=== PATIENT | female | born 1965 | race Caucasian/White ===

== ENCOUNTER 2017-03-24 16:51 | Emergency (ER) | payer MEDICARE, BC ==
--- NOTE | 2017-03-24 18:04 | RAD ---
HISTORY: Right shoulder injury and pain, trauma COMPARISONS: None VIEWS: 4, Frontal internal rotation, external rotation, outlet, and axillary views of the right shoulder FINDINGS: BONE DENSITY: Normal. BONES: There is no displaced fracture. JOINTS: There is no arthropathy. ALIGNMENT: There is no dislocation. SOFT TISSUES: Unremarkable. OTHER FINDINGS: None. IMPRESSION: NO ACUTE OSSEOUS INJURY. IF SYMPTOMS PERSIST, RECOMMEND REPEAT IMAGING.
--- NOTE | 2017-03-24 18:29 | ED ---
Upper Extremity Pain - HPI Summary HPI Summary: 51F presents with right arm pain s/p falling last night. She states she felt lightheaded all day from being dehydrated so was a little overbalance when she was walking through her house at night. She states the lightheadedness has resolved. She states she landed on her right wrist and felt pain in her shoulder on the sofa and continues to fall and landed again on her shoulder and right elbow. She denies any head injury or LOC. She denies any headache, nausea or vomiting. She is not on any blood thinners. She is being treated for leukemia and has arthritis in her shoulder and a weak rotator cuff. She has limited ROM of her shoulder. She can not lift her shoulder overhead. She is right handed. She has taken ibuprofen for her pain. Her pain starts on the right side of her neck and travels down her entire arm but is greatest in her shoulder. - History of Current Complaint Chief Complaint: EDExtremityUpper Stated Complaint: RT SHOULDER PAIN/LMTED MOVEMENT Time Seen by Provider: 03/24/17 17:34 - Allergies/Home Medications Allergies/Adverse Reactions: Allergies Allergy/AdvReac Type Severity Reaction Status Date / Time Acetaminophen [From Tylenol] Allergy See Comment Verified 07/07/16 10:32 Codeine Allergy Rash Verified 07/07/16 10:32 PMH/Surg Hx/FS Hx/Imm Hx Endocrine/Hematology History: Denies: Hx Diabetes Cardiovascular History: Denies: Hx Hypertension, Hx Pacemaker/ICD History: Denies: Hx Renal Disease Musculoskeletal History: Denies: Hx Rheumatoid Arthritis, Hx Osteoporosis Sensory History: Denies: Hx Hearing Aid Psychiatric History: Denies: Hx Panic Disorder - Cancer History Cancer Type, 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 RIGHT TONSIL REMOVED Infectious Disease History: No Infectious Disease History: Denies: Traveled Outside the [place] in Last 30 Days - Family History Known Family History: Positive: Cardiac Disease - Social History Alcohol Use: None Substance Use Type: Reports: None Smoking Status (MU): Former Smoker Review of Systems Negative: Fever Negative: Chest Pain Negative: Shortness Of Breath Positive: Myalgia - right shoulder and arm pain All Other Systems Reviewed And Are Negative: Yes Physical Exam Triage Information Reviewed: Yes Vital Signs On Initial Exam: Initial Vitals Temp Pulse Resp BP Pulse Ox 98.7 F 91 18 136/84 98 03/24/17 17:01 03/24/17 17:01 03/24/17 17:01 03/24/17 17:01 03/24/17 17:01 Vital Signs Reviewed: Yes Appearance: Positive: Well-Appearing Skin: Positive: Warm, Dry Head/Face: Positive: Normal Head/Face Inspection Eyes: Positive: Normal, Conjunctiva Clear ENT: Positive: Normal ENT inspection, Pharynx normal, TMs normal Respiratory/Lung Sounds: Positive: Clear to Auscultation, Breath Sounds Present Cardiovascular: Positive: Normal, RRR Musculoskeletal: Positive: Limited @ - right shoulder, Other - neg drop arm, neg yearson, unable to move arm behind back for lift off test, good pulses, capillary refill<2 secs, tender across trapezius muscle into right shoulder, tender in right wrist, abrasion to right elbow noted Neurological: Positive: Sensory/Motor Intact, Alert, Oriented to Person Place, Time, CN Intact II-III Diagnostics - Vital Signs Vital Signs Temp Pulse Resp BP Pulse Ox 03/24/17 17:08 98.7 F 91 18 136/84 98 03/24/17 17:01 98.7 F 91 18 136/84 98 - Laboratory Lab Statement: Any lab studies that have been ordered have been reviewed, and results considered in the medical decision making process. - Radiology shoulder Xray Interpretation: No Acute Changes Radiology Interpretation Completed By: Radiologist elbow, wrist Xray Interpretation: No Acute Changes Radiology Interpretation Completed By: Radiologist Course/Dx - Course Course Of Treatment: 51F presents with right arm pain s/p falling last night. She states she felt lightheaded all day from being dehydrated so was a little overbalance when she was walking through her house at night. She states the lightheadedness has resolved. She states she landed on her right wrist and felt pain in her shoulder on the sofa and continues to fall and landed again on her shoulder and right elbow. She denies any head injury or LOC. She can not lift her shoulder overhead. normal neuro exam. unable to lift arm above 90 degree or behind back. neg drop arm. neurovascular intact. xray normal. explained that may have rotator cuff injury so should follow up with ortho. patient understands and agrees with plan - Diagnoses Differential Diagnosis/HQI/PQRI: Positive: Fracture (Closed), Strain, Sprain Provider Diagnoses: Right shoulder pain, Right arm pain Discharge - Discharge Plan Condition: Good Disposition: HOME Patient Education Materials: Shoulder Pain (ED) Referrals: Dieter Najera MD [Primary Care Provider] - Chacho Rios MD [Medical Doctor] - Additional Instructions: Take ibuprofen every 6 hours as needed for pain Ice/heat area Perform range of motion activities for shoulder Follow up with ortho Return to ED if develop any new or worsening symptoms
--- NOTE | 2017-03-24 18:58 | RAD ---
HISTORY: Right wrist pain, trauma COMPARISONS: None VIEWS: 3, Frontal, lateral, and oblique views of the right wrist FINDINGS: BONE DENSITY: Normal. BONES: There is no displaced fracture. JOINTS: There is no arthropathy. ALIGNMENT: There is no dislocation. SOFT TISSUES: Unremarkable. OTHER FINDINGS: None. IMPRESSION: NO ACUTE OSSEOUS INJURY. IF SYMPTOMS PERSIST, RECOMMEND REPEAT IMAGING.
--- NOTE | 2017-03-24 18:58 | RAD ---
HISTORY: Right elbow pain, trauma COMPARISONS: None VIEWS: 4, Frontal, lateral, and oblique views of the right elbow FINDINGS: BONE DENSITY: Normal. BONES: There is no displaced fracture. JOINTS: There is no arthropathy. There is no posterior supracondylar fat pad to suggest a joint effusion. ALIGNMENT: There is no dislocation. SOFT TISSUES: Unremarkable. OTHER FINDINGS: None. IMPRESSION: NO ACUTE OSSEOUS INJURY. IF SYMPTOMS PERSIST, RECOMMEND REPEAT IMAGING.
[2017-03-24 19:31] VITALS: BP 142/78
== END 2017-03-24 19:28 | disposition home or self-care (01) ==
LOC: ED 16:51
DX: M25.511 Pain in right shoulder (principal); M79.601 Pain in right arm; Z87.891 Personal history of nicotine dependence; Z88.6 Allergy status to analgesic agent; Z88.5 Allergy status to narcotic agent; Z85.6 Personal history of leukemia
CPT/HCPCS: 99282

== ENCOUNTER 2018-09-20 14:02 | Inpatient (IN) | payer MEDICARE, BC ==
--- NOTE | 2018-09-13 13:23 | HP ---
HISTORY AND PHYSICAL: DATE OF ADMISSION/SURGERY: 09/20/18 DATE OF OFFICE VISIT: 09/09/18 SURGEON: Kristan Chris MD.* (DICTATED BY GEORGE HWANG) PROCEDURE: Right total knee arthroplasty. CHIEF COMPLAINT: Right knee pain. HISTORY OF PRESENT ILLNESS: Ms. Reyes is a 53-year-old female with continued complaints of right knee pain. She has failed conservative treatment and elected to proceed with a right total knee arthroplasty. PAST MEDICAL HISTORY: CML, fibromyalgia, thyroid nodule, anxiety and depression , polymyalgia, and acquired cognitive dysfunction. PAST SURGICAL HISTORY: , tonsillectomy and cyst excision. CURRENT MEDICATIONS: 1. Escitalopram 20 mg daily. 2. Tramadol as needed. 3. Gleevec 200 mg a day. 4. Bupropion 150 mg a day. 5. Alprazolam 1 mg daily. ALLERGIES: To LATEX, CODEINE causing a rash and TYLENOL. FAMILY HISTORY: Diabetes, cancer, and dementia. SOCIAL HISTORY: She is a 53-year-old female. She lives with her . She does not smoke or use drugs or alcohol. PREVIEW OF SYSTEMS: A complete 14-point review of systems was reviewed with the patient. Positive for a thyroid nodule. She denies history of DVT, PE, hepatitis, HIV or anesthesia problems. PHYSICAL EXAMINATION GENERAL: She is well developed, well nourished, in no acute distress. VITAL SIGNS: She stands 5 feet 4 inches tall, weighs 191 pounds. Her blood pressure is 120/84 and heart rate is 84. HEENT: Normocephalic, atraumatic. NECK: Supple. No palpable lymph nodes. PULMONARY: Lungs are clear to auscultation bilaterally. CARDIO: Regular rate and rhythm. Strong S1 and S2. ABDOMEN: Soft, nontender, nondistended. NEUROLOGICAL: She is alert and oriented x3. MUSCULOSKELETAL: Right lower extremity: The skin is intact. There are no open wounds or abrasions. Range of motion is 10 to 120 degrees of flexion with patellofemoral crepitus. 2 to 2+ dorsal pedis pulse. Intact sensation and her lower extremity muscle group strengths are intact at 5/5. ASSESSMENT AND PLAN: Ms. Reyes is a 53-year-old female with severe arthritis of her right knee. She has failed conservative treatment and elected to proceed with a right total knee arthroplasty. Surgery is scheduled for 09/[address] Chris discussed the risks and benefits of the surgery at today's visit and all of her questions were answered. She will follow with Dr. Chris 2 weeks after the surgery. GEORGE HWANG [id number]/[facility] #: [id number] [facility]ENTER[facility]
[~2018-09-20 14:02] MED LIST: Buffered Lidocaine 1% SYRIN* 1 ML/SYRINGE INTRADERM ONE; Famotidine IV* 10 MG/ML 2 ML (20 mg) IV ONE; Gabapentin CAP(*) 300 MG PO ONE; Lactated Ringers 1000 ML Bag* 1,000 ML IV SCH; Midazolam* 1 MG/ML 5 ML VIAL (5 MG) ONE; Tranexamic Acid 1,000 MG in NS 0.9% 50 ML* (outpatient use) IV SCH; fentaNYL* 50 MCG/ML 2 ML VIAL (100 MCG VIAL) ONE
--- OUTSIDE RECORDS SUMMARY | 2018-09-20 14:06 | XMS REPORT | Continuity of Care Document ---
:1965 External Reference #:[id number] Author Name Sofy Fernando Care Team Providers Name Role Phone Dieter Najera MD Primary Care Physician Unavailable Payers Type Date Identification Numbers Payment Provider Subscriber Policy Number: [id number] Medicare Cheryl Reyes PayID: [id number] [address] [place] [address] Policy Number: [id number] BS Facets Ernie Reyes PayID: [id number] [address] [address] [place] [address] Advance Directives Description No Information Available Problems Date Description Provider Status Onset: 2018 Localized, primary osteoarthritis Kristan Chris M.D. Active Family History Date Family Member(s) Problem(s) Comments General Diabetes General Heart Disease General Hypertension General Cancer General arthritis Social History Type Date Description Comments Sex Unknown Lives With Spouse Occupation Disabled ETOH Use Denies alcohol use Tobacco Use Start: Unknown Patient has never smoked Smoking Status Reviewed: 09/09/18 Patient has never smoked Exercise Type/Frequency Exercises sporadically Allergies, Adverse Reactions, Alerts Date Description Reaction Status Severity Comments 2018 Codeine Active and derivatives 2018 Tylenol Active 07/22/2018 Latex Active Medications Medication Date Status Form Strength Qnty SIG Indications Ordering Provider Tramadol HCL 08/16/ Active Tablets 50mg 60tab 1 tab three 2017 s times a day as Aries, needed for M.D. pain Rolling Walker 08/16/ Active use for M17.11 2018 assistance Aries, with M.D. weightbearing after total knee replacement ht- 64.5" wt-197 dx-17.11 Escitalopram 03/30/ Active Tablets 50mg 30tab 1 by mouth Krsitan Oxalate 2018 s every day Ivelisse Chris Gleevec / Active Tablets 200mg Unknown 0000 Bupropion HCL / Active 150mg Unknown 0000 Alprazolam / Active Tablets 1mg Unknown 0000 Dispers Medications Administered in Office Medication Date Status Form Strength Qnty SIG Indications Ordering Provider Depomedrol Administered Injection Kristan 40MG 018 Ivelisse Chris Immunizations Description No Information Available Vital Signs Date Vital Result Comment 09/09/2018 1:59pm Height 64.5 inches 5'4.50" Weight 191.00 lb Heart Rate 84 /min BP Systolic 120 mmHg BP Diastolic 84 mmHg BMI (Body Mass Index) 32.3 kg/m2 07/22/2018 9:00am Height 64.5 inches 5'4.50" Weight 197.00 lb BP Systolic 140 mmHg BP Diastolic 90 mmHg Body Temperature 98.1 F BMI (Body Mass Index) 33.3 kg/m2 2018 11:13am Height 64.5 inches 5'4.50" Weight 192.00 lb Heart Rate 88 /min BP Systolic 124 mmHg BP Diastolic 80 mmHg BMI (Body Mass Index) 32.4 kg/m2 Results Test Date Facility Test Result H/L Range Note Urinalysis Profile 09/12/2018 [facility] Urine Color Yellow [address] [place] [address] [phone] Urine Appearance Cloudy Urine Specific [place] 1.021 N 1.010-1.030 Urine pH 5.0 N 5-9 Urine Urobilinogen Negative Negative Urine Ketones Trace Abnormal Negative Urine Protein Negative Negative Urine Leukocytes Negative Negative Urine Blood Negative Negative Urine Nitrite Negative Negative Urine Bilirubin Negative Negative Urine Glucose 2+(150 mg/dL) Abnormal Negative CBC Auto Diff 09/12/2018 [facility] White Blood 10.2 10^3/uL N 3.5-10.[address] [place] [address] [phone] Red Blood Count 4.17 10^6/uL N 4.00-5.40 Hemoglobin 13.4 g/dL N 12.0-16.0 Hematocrit 39 % N 35-47 Mean Corpuscular Volume 95 fL N 80-97 Mean Corpuscular Hemoglobin 32 pg High 27-31 Mean Corpuscular HGB Conc 34 g/dL N 31-36 Red Cell Distribution Width 13 % N 10.5-15 Platelet Count 358 10^3/uL N 150-450 Mean Platelet Volume 7.7 fL N 7.4-10.4 Abs Neutrophils 6.8 10^3/uL N 1.5-7.7 Abs Lymphocytes 2.4 10^3/uL N 1.0-4.8 Abs Monocytes 0.8 10^3/uL N 0-0.8 Abs Eosinophils 0.1 10^3/uL N 0-0.6 Abs Basophils 0 10^3/uL N 0-0.2 Abs Nucleated RBC 0 10^3/uL Granulocyte % 66.9 % Lymphocyte % 23.5 % Monocyte % 8.1 % Eosinophil % 1.1 % Basophil % 0.4 % Nucleated Red Blood Cells % 0 Inr/Protime 09/12/2018 [facility] Inr 0.86 N 0.77-1.[address] [place] [address] [phone] Laboratory test 09/12/2018 [facility] Partial 28.0 seconds N 26.0-36.[address] [place] [address] PTT [phone] Comp Metabolic 09/12/2018 [facility] Sodium 136 mmol/L N 135- 145 Panel [address] [place] [address] [phone] Potassium 4.5 mmol/L N 3.5-5.0 Chloride 103 mmol/L N 101-111 Co2 Carbon Dioxide 28 mmol/L N 22-32 Anion Gap 5 mmol/L N 2-11 Glucose 127 mg/dL High 70-100 Blood Urea Nitrogen 11 mg/dL N 6-24 Creatinine 0.79 mg/dL N 0.51-0.95 BUN/Creatinine Ratio 13.9 N 8-20 Calcium 10.2 mg/dL N 8.6-10.3 Total Protein 6.7 g/dL N 6.4-8.9 Albumin 4.3 g/dL N 3.2-5.2 Globulin 2.4 g/dL N 2-4 Albumin/Globulin Ratio 1.8 N 1-3 Total Bilirubin 0.40 mg/dL N 0.2-1.0 Alkaline Phosphatase 89 U/L N 34-104 Alt 7 U/L N 7-52 Ast 21 U/L N 13-39 Egfr Non- 76.4 >60 Egfr 92.5 >60 1 Type & Screen 09/12/2018 [facility] Patient Blood Type A Positive [address] [place] [address] [phone] Antibody Screen NEGATIVE Urine Culture And 09/12/2018 [facility] Urine Culture SEE RESULT [address] [place] [address] [phone] 1 Because ethnic data is not always readily available, this report includes an eGFR for both -Americans and non- Americans. The National Kidney Disease Education Program (NKDEP) does not endorse the use of the MDRD equation for patients that are not between the ages of 18 and 70, are , have extremes of body size, muscle mass, or nutritional status, or are non- or non-. According to the National Kidney Foundation, irrespective of diagnosis, the stage of the disease is based on the level of kidney function: Stage Description GFR(mL/min/1.73 m(2)) 1 Kidney damage with normal or decreased GFR 90 2 Kidney damage with mild decrease in GFR 60-89 3 Moderate decrease in GFR 30-59 4 Severe decrease in GFR 15-29 5 Kidney failure <15 (or dialysis) 2 SEE RESULT BELOW Name: BEVERLYASHLIANTELMO JonesCHERYL : [address]: Kristan Chris MD Acct: [id number] Unit: [id number] AGE: 53 Location: [facility] Re09/12/18 SEX: F Status: REG REF SPEC: [id number] JASON: 09/12/[address] [facility] [address]: Kristan Chris MD REQ: [id number] RECD: 09/12/18 STATUS: COMP HOLLIS DR: MD Sumit Mc MD, MD _ SOURCE: URINE SPDESC: ORDERED: Urine Culture QUERIES: Urine Source: Clean Catch Procedure Result Reported Site Urine Culture Final 09/14/18730 ML No growth of clinically significant organisms * ML - Main Lab . END OF REPORT DEPARTMENT OF PATHOLOGY, [address] [place] [address] Rony Bui M.D. Director [facility] # [id number] Procedures Date Code Description Status 07/22/2018 76334 Inject/Drain Joint/Bursa Major W/O US Completed Encounters Type Date Location Provider Dx Diagnosis Office Visit 07/22/2018 [facility] Krist[facility] Chris, M25.561 Pain in right 9:00a [facility] knee M25.461 Effusion, right knee M17.11 Unilateral primary osteoarthritis, right knee Office Visit 2018 10:15a [facility] Kristan Chris, M25.561 Pain in right [facility] [place] knee M25.562 Pain in left knee M25.462 Effusion, left knee M25.461 Effusion, right knee M17.0 Bilateral primary osteoarthritis of knee Plan of Treatment Future Appointment(s):10/03/2018 1:00 pm - Kristan Chris M.D. at [facility].09/20/2018 4:00 pm - [facility] 4:00 pm - GEORGE Medel [facility]09/20/2018 4:00 pm - Kristan Chris M.D. at [facility].09/09/2018 - Kristan Chris M.D.M25.561 Pain in right kneeFollow up:Follow up: 2 weeks after [id number] Effusion, right kneeM17.11 Unilateral primary osteoarthritis, right knee
--- OUTSIDE RECORDS SUMMARY | 2018-09-20 14:06 | XMS REPORT | Continuity of Care Document ---
:1965 External Reference #:[id number] Author Name Naya Malcolm Care Team Providers Name Role Phone Dieter Najera MD Primary Care Physician Unavailable Payers Type Date Identification Numbers Payment Provider Subscriber Policy Number: [id number] Medicare Cheryl Reyes PayID: [id number] [address] [place] [address] Policy Number: [id number] BS Facets Ernie Reyes PayID: [id number] [address] [address] [place] [address] Advance Directives Description No Information Available Problems Date Description Provider Status Onset: 2018 Localized, primary osteoarthritis Kristan Chrsi M.D. Active Family History Date Family Member(s) [...] Rolling Walker 08/16/ Active use for M17.11 Kristan 2018 assistance Aries, with M.D. weightbearing after total knee replacement ht- 64.5" wt-197 dx-17.11 Escitalopram 03/30/ Active Tablets 50mg 30tab 1 by mouth Kristan Oxalate 2018 s every day Ivelisse Chris [...] Result H/L Range Note Urinalysis Profile 09/12/2018 [facility] [place] [address] [phone] Urine Appearance Cloudy Urine Specific [place] 1.021 N 1.010-1.030 Urine pH 5.0 N 5-9 Urine Urobilinogen Negative Negative Urine Ketones Trace Abnormal Negative Urine Protein Negative Negative Urine Leukocytes Negative Negative Urine Blood Negative Negative Urine Nitrite Negative Negative Urine Bilirubin Negative Negative Urine Glucose 2+(150 mg/dL) Abnormal Negative CBC Auto Diff 09/12/2018 [facility] White Blood 10.2 10^3/uL N 3.5-10.[address] [place] [address] [phone] Red Blood Count 4.17 10^6/uL N 4.00-5.40 [...] Red Blood Cells % 0 Inr/Protime 09/12/2018 [facility] Inr 0.86 N 0.77-1.[address] [place] [address] [phone] Laboratory test 09/12/2018 [facility] Partial 28.0 seconds N 26.0-36.[address] [place] [address] PTT [phone] Comp Metabolic 09/12/2018 [facility] Sodium 136 mmol/L N 135- [address] [place] [address] [phone] Potassium 4.5 mmol/L N 3.5-5.0 Chloride 103 [...] 92.5 >60 1 Type & Screen 09/12/2018 [facility] Patient Blood Type A Positive [address] [place] [address] [phone] Antibody Screen NEGATIVE 1 Because ethnic data is not always [...] 15-29 5 Kidney failure <15 (or dialysis) Procedures Date Code Description Status 07/22/2018 62782 Inject/Drain Joint/Bursa Major W/O US Completed Encounters Type Date Location Provider Dx Diagnosis Office Visit 07/22/2018 [facility] Kristan Chris, M25.561 Pain in right 9:00a [facility] knee M25.461 Effusion, right knee M17.11 Unilateral primary osteoarthritis, right knee Office Visit 2018 10:15a [facility] Kristan Chris, M25.561 Pain in right [facility] M25.562 Pain in left knee M25.462 Effusion, left knee M25.461 Effusion, right knee M17.0 Bilateral primary osteoarthritis of knee Plan of Treatment Future Appointment(s):10/03/2018 1:00 pm - Kristan Chris M.D. at [facility]/20/2018 4:00 pm - Saleem Villegas PA-C at [facility]/2018 4:00 pm - GEORGE Medel at [facility].09/20/2018 4:00 pm - Kristan Chris M.D. at [facility].09/09/2018 - Kristan Chris M.D.M25.561 Pain in right kneeFollow up:Follow up: 2 weeks after amedxwtA90.461 Effusion, right kneeM17.11 Unilateral primary osteoarthritis, right knee
--- OUTSIDE RECORDS SUMMARY | 2018-09-20 14:06 | XMS REPORT | Continuity of Care Document ---
:1965 External Reference #:[id number] Author Name Katie Fuller Care Team Providers Name Role Phone Dieter Najera MD Primary Care Physician Unavailable Payers Type Date Identification Numbers Payment Provider Subscriber Policy Number: [id number] Medicare Cheryl Reyes PayID: [id number] [address] [place] [address] Policy Number: [id number] BS Facets Ernie Reyes PayID: [id number] [address] [address] [place] [address] Advance Directives Description No Information Available Problems [...] BMI (Body Mass Index) 32.4 kg/m2 Results Description No Information Available Procedures Date Code Description Status 07/22/2018 38346 Inject/Drain Joint/Bursa Major W/O US Completed Encounters [...] [facility] 4:00 pm - Saleem Villegas PA-C at [facility].09/20/2018 4:00 pm - GEORGE Medel at [facility].09/20/2018 4:00 pm - Kristan Chris M.D. at [facility]09/09/2018 - Kristan Chris M.D.M25.561 Pain in right kneeFollow up:Follow up: 2 weeks after [id number] Effusion, right kneeM17.11 Unilateral primary osteoarthritis, right knee
[2018-09-20] MEDS ORDERED: Famotidine IV* 10 MG/ML 2 ML (20 mg) ONE (14:26)
[2018-09-20] MEDS ORDERED: ceFAZolin 2 GM PREMIX in ORs 2 GM/50 ML BAG IVPB ONE (14:27)
[2018-09-20] MEDS ORDERED: Buffered Lidocaine 1% SYRIN* 1 ML/SYRINGE INTRADERM ONE (14:27)
[2018-09-20] MEDS ORDERED: Gabapentin CAP(*) 300 MG ONE (14:27)
[2018-09-20] MEDS ORDERED: Bupivacaine 0.5%* 50 ML VIAL ONE (15:46)
[2018-09-20] MEDS ORDERED: Dexamethasone IV* 4 MG/ML 1 ML (4 MG) ONE (16:10)
[2018-09-20] MEDS ORDERED: Propofol* 10 MG/ML 20 ML BTL ONE ×2 (16:10→16:44)
[2018-09-20] MEDS ORDERED: KETAMINE HCL* 50 MG/ML 10 ML VIAL ONE (16:10)
[2018-09-20] MEDS ORDERED: Ketorolac INJ* 30 MG/ML 1 ML VIAL ONE (16:10)
[2018-09-20] MEDS ORDERED: Lidocaine 2% PF * 5 ML VIAL ONE (16:10)
[2018-09-20] MEDS ORDERED: DiMENhydriNATE IV* 50 MG/ML VIAL ONE (16:10)
[2018-09-20] MEDS ORDERED: Ondansetron INJ* 2 MG/ML VIAL ONE (16:10)
[2018-09-20] MEDS ORDERED: fentaNYL* 50 MCG/ML 2 ML VIAL (100 MCG VIAL) ONE (16:39)
[2018-09-20] MEDS ORDERED: Magnesium Hydroxide LIQ* 30 ML UDC PO PRN (17:23)
[2018-09-20] MEDS ORDERED: Bisacodyl SUPP* 10 MG SUPP PR PRN (17:23)
[2018-09-20] MEDS ORDERED: Ondansetron INJ* 2 MG/ML VIAL IV PRN (17:23)
[2018-09-20] MEDS ORDERED: diPHENhydraMINE IV* 50 MG/ML 1 ml VIAL (BENADRYL) IV PRN (17:23)
[2018-09-20] MEDS ORDERED: Acetaminophen TAB* 325 MG PO PRN (17:23)
[2018-09-20] MEDS ORDERED: oxyCODONE/Acetamin 5/325 MG* TAB PO PRN ×2 (17:23)
[2018-09-20] MEDS ORDERED: Naloxone* 0.4 MG/ML 1 ML VIAL IV PRN (17:43)
[2018-09-20] MEDS ORDERED: DiMENhydriNATE IV* 50 MG/ML VIAL IV PUSH PRN (17:43)
[2018-09-20] MEDS ORDERED: Gabapentin CAP(*) 100 MG PO ONE (17:47)
[2018-09-20] MEDS ORDERED: Lactated Ringers 1000 ML Bag* 1,000 ML IV SCH (18:00)
[2018-09-20] MEDS ORDERED: HYDROmorphone INJ1* 1 MG/ML SYRINGE ONE (18:35)
--- NOTE | 2018-09-20 18:55 | CONSULT ---
Subjective Date of Service: 09/20/18 Interval History: This is a 53 year old female patient with history of fibromyalgia, CML, chronic pain syndrome and osteoarthritis that presented to Dr. Chris for knee pain. She has failed conservative treatment and has elected for right total knee artrhoplasty. Patient is seen in the PACU, very groggy 2/2 anesthesia. Unable to obtain full ROS, but can follow commands and appears comfortable. at bedside to history. Family History: Unchanged from Admission Social History: Unchanged from Admission Past Medical History: Unchanged from Admission Review of Systems - Measurements Intake and Output: Intake and Output Last 24 Hours 09/18/18 09/19/18 09/20/18 09/21/18 06:59 06:59 06:59 06:59 Intake Total 1600 Output Total 300 Balance 1300 Weight 189 lb Intake: IV Fluids 1600 LR 1600 Output: Bishop 300 - Review of Systems General Comments: Sleepy 2/2 anesthesia Dermatology: Positive: Normal HEENT: Positive: Normal Eyes: Positive: Normal Pulmonary: Positive: Normal Cardiology: Positive: Normal Endocrinology: Positive: Normal Neurology: Positive: Other - chronic pain/fibromyalgia Psychiatry: Positive: Normal Objective Active Medications: Bisacodyl (Dulcolax Supp*) 10 mg PA DAILY PRN PRN Reason: constipation Cyclobenzaprine HCl (Flexeril Tab*) 5 mg PO TID PRN PRN Reason: SPASMS Dimenhydrinate (Dramamine Iv*) 12.5 mg IV PUSH ONCE PRN PRN Reason: NAUSEA/VOMITING Diphenhydramine HCl (Benadryl Iv*) 25 mg IV Q6H PRN PRN Reason: itching Docusate Sodium (Colace Cap*) 100 mg PO BID [facility] Enoxaparin Sodium (Lovenox(*)) 40 mg SUBCUT Q24H [facility] Escitalopram Oxalate (Lexapro (Nf)) 20 mg PO QAM [facility] Famotidine (Pepcid Iv*) 20 mg IV ONCE ONE Stop: 09/20/18 06:01 Last Admin: 09/20/18 14:38 Dose: 20 mg Gabapentin (Neurontin Cap(*)) 300 mg PO ONCE ONE Stop: 09/20/18 06:01 Last Admin: 09/20/18 14:38 Dose: 300 mg Gabapentin (Neurontin Cap(*)) 100 mg PO ONCE ONE Stop: 09/20/18 17:48 Hydromorphone HCl (Dilaudid Inj1s*) 0.2 mg IV Q5M PRN PRN Reason: PAIN - SEVERE Lactated Ringer's (Lactated Ringers 1000 Ml Bag*) 1,000 mls @ 125 mls/hr IV PER RATE [facility] Last Admin: 09/20/18 14:38 Dose: 125 mls/hr Tranexamic Acid 1,000 mg/ (Sodium Chloride) 60 mls @ 120 mls/hr IV ONCE Stop: 09/20/18 23:59 Cefazolin Sodium 1 gm/ Sodium (Chloride) 50 mls @ 200 mls/hr IVPB Q8H [facility] Stop: 09/21/18 10:14 Lactated Ringer's (Lactated Ringers 1000 Ml Bag*) 1,000 mls @ 100 mls/hr IV PER RATE [facility] Lactulose (Lactulose*) 30 ml PO Q6H PRN PRN Reason: constipation Lidocaine/Sodium Bicarbonate (Buffered Lidocaine 1% Syrin*) 0.2 ml INTRADERM ONCE ONE Stop: 09/19/18 12:15 Magnesium Hydroxide (Milk Of Magnesia Liq*) 30 ml PO BID [facility] Magnesium Hydroxide (Milk Of Magnesia Liq*) 30 ml PO Q6H PRN PRN Reason: constipation Morphine Sulfate (Morphine Vial*) 2 mg IV Q2H PRN PRN Reason: PAIN Multivitamins (Theragran Tab*) 1 tab PO DAILY [facility] Naloxone HCl (Narcan*) 0.08 mg IV Q2M PRN PRN Reason: severe induced resp depression Non-Formulary Medication (Alprazolam [Xanax]) 1 mg PO TID PRN PRN Reason: ANXIETY Ondansetron HCl (Zofran Inj*) 4 mg IV Q6H PRN PRN Reason: nausea Oxycodone HCl (Roxycodone Tab*) 10 mg PO Q4H PRN PRN Reason: PAIN - SEVERE Oxycodone HCl (Roxycodone Tab*) 5 mg PO ONCE PRN PRN Reason: PAIN - MODERATE Tramadol HCl (Ultram*) 50 mg PO Q6H PRN PRN Reason: PAIN Vital Signs - 8 hr 09/20/18 09/20/18 09/20/18 14:34 18:17 18:18 Temperature 98.4 F 97.5 F Pulse Rate 101 80 77 Respiratory 16 16 Rate Blood Pressure 155/89 112/74 (mmHg) O2 Sat by Pulse 98 100 93 Oximetry 09/20/18 09/20/18 18:25 18:30 Temperature Pulse Rate 85 90 Respiratory 14 12 Rate Blood Pressure 123/73 137/73 (mmHg) O2 Sat by Pulse 100 100 Oximetry Oxygen Devices in Use Now: Nasal Cannula Appearance: sleepy, comfortable Eyes: No Scleral Icterus, PERRLA Ears/Nose/Mouth/Throat: Clear Oropharnyx, Mucous Membranes Moist Neck: NL Appearance and Movements; NL JVP, Trachea Midline Respiratory: Symmetrical Chest Expansion and Respiratory Effort, Clear to Auscultation Cardiovascular: NL Sounds; No Murmurs; No JVD, RRR, No Edema Abdominal: - - hypoactive BS Extremities: No Clubbing, Cyanosis Skin: No Rash or Ulcers, - - dressing CDI Neurological: - - drowsy, arousable Assessment/Plan - Billing Assessment: This is a 53 year old female with history of CML and fibromyalgia/ chronic pain admitted for elective RTKA: 1. OA, s/p RTKA - POD0, POC as per ortho - Pain control - Bowel Regimen - OOB with PT/OT 2. History of CML - Follows with Dr. Meier - Continue Gleevec daily 3. Fibromyalgia/Chronic Pain - Follows with pain clinic 4. Depression/Anxiety - Continue home meds VTE PPX: - Lovenox-coumadin bridge per orthopedics Diet: - Regular, as tolerated Code Status: - Full Code Admission Status and Rationale: - Remain inpatient, dispo as per orthopedics. Thank you for the courtesy of this consult and for allowing us to participate in your patient's care.
[2018-09-20] MEDS: HYDROmorphone INJ1* 1 MG/ML SYRINGE IV PRN ×5 (19:04→19:45)
[2018-09-20] MEDS ORDERED: Gabapentin CAP(*) 100 MG ONE (19:08)
[2018-09-20] MEDS ORDERED: oxyCODONE TAB* 5 MG TAB ONE ×2 (19:25→19:46)
[2018-09-20] MEDS: oxyCODONE TAB* 5 MG TAB PO PRN ×2 (19:26→19:47)
[2018-09-20] MEDS: Morphine VIAL* 4 MG/ML VIAL (1 ml vial) IV PRN (20:45)
[2018-09-20] MEDS: traMADol TAB* 50 MG PO PRN (22:53)
[2018-09-20] MEDS: Docusate CAP* 100 MG PO SCH (22:53)
[2018-09-20] MEDS: Magnesium Hydroxide LIQ* 30 ML UDC PO SCH (22:53)
[2018-09-21] MEDS: ceFAZolin 1 GM ADVAN(*) 1 GM in NS 0.9% 50 ML* 50 ML IVPB SCH ×3 (01:04→16:14)
[2018-09-21] MEDS: oxyCODONE TAB* 5 MG TAB PO PRN ×4 (01:26→23:16)
[2018-09-21] MEDS: Morphine VIAL* 4 MG/ML VIAL (1 ml vial) IV PRN ×4 (01:26→21:51)
--- NOTE | 2018-09-21 05:00 | OP ---
OPERATIVE REPORT: DATE OF OPERATION: 09/20/18 DATE OF : 67 SURGEON: Kristan Chris MD AUTO ROLLER: GEORGE Aguilar Mr. Villegas did help throughout the procedure with preparation of the leg, wound retraction, manipulation of the knee, and wound closure. ANESTHESIOLOGIST: Dr. Wall. ANESTHESIA: General. PRE-OP DIAGNOSIS: Severe end-stage degenerative osteoarthritis of the right knee joint. POST-OP DIAGNOSIS: Severe end-stage degenerative osteoarthritis of the right knee joint. OPERATIVE PROCEDURE: Right total knee arthroplasty. COMPLICATIONS: None. ESTIMATED BLOOD LOSS: 200 cc. SPECIMEN: Bone and cartilage from right knee joint sent to Pathology. TOURNIQUET TIME: 43 minutes. HARDWARE USED: This is cemented [employer]hew total knee arthroplasty hardware. Two packages of Simplex bone cement were used. For the femur, a size 5 right narrow Legion posterior stabilized Oxinium femoral component. For the tibia, size 3 right tibial base plate Susan II. For the insert, a 9-mm posterior stabilized articular insert, size 3/4 and for the patella, a 32-mm 3- peg all poly patella. BRIEF HISTORY/INDICATIONS: Ms. Reyes is a 53-year-old female with years of increasingly severe right knee pain. The patient's radiographs showed severe arthritis with [id number] contact. She failed conservative treatment with antiinflammatories, pain medications, intraarticular injections, and physical therapy. Due to continued pain and decreased quality of life, she elected to undergo right total knee arthroplasty. Informed consent was obtained from the patient. She understood the risks of surgery included, but were not limited to bleeding, infection, damage to nearby structures, continued pain, need for further surgery, intraoperative fracture, nerve palsy, hardware failure or loosening, knee stiffness, loss of motion, stroke, heart attack, blood clot, and . She wished to proceed. INTRAOPERATIVE FINDINGS: Intraoperatively, the patient is noted to have severe end- stage arthritis with complete loss of cartilage in all 3 compartments. DESCRIPTION OF PROCEDURE: Ms. Reyes was identified in the preanesthesia unit. Her right lower extremity was marked as the correct operative site. Informed consent was signed and placed in the chart. The patient was taken to the operating room and placed under anesthesia without complications. A Bishop catheter was placed. Tourniquet was placed on the right thigh. Right lower extremity was prepped and draped in the usual sterile fashion. Preop time-out was made to correctly identify the patient, side and site. Appropriate perioperative antibiotics were given within 1 hour of incision. Tourniquet was inflated and total tourniquet time for this procedure was 43 minutes. A midline incision was made with a #10 blade and carried down to the extensor mechanism. A new #10 blade was used to make a standard medial parapatellar arthrotomy. Patella was subluxed laterally. Electrocautery was used to subperiosteally elevate soft tissues off the superomedial tibia to the mid sagittal plane. The knee was flexed up. The anterior horn of the lateral meniscus and ACL were sharply released. A drill was used to enter the distal femur. Intramedullary distal femoral cutting guide was pinned on the distal femur. Oscillating saw was used to make the distal femoral cut. Next, the external rotation guide was pinned on the distal femur. Distal femur was sized to a size 5. Size 5 multi-cutting jig was pinned on the distal femur. Oscillating saw was used to make the appropriate 4 chamfer cuts. PCL was completely released and the tibia was subluxed anteriorly. Extramedullary tibial cutting guide was pinned on the proximal tibia. Oscillating saw was used to make the proximal tibial cut perpendicular to the mechanical axis of the tibia. The bone was carefully removed. The knee was brought out into full extension. Spacer block had good fit with the knee in full extension. Medial and lateral ligaments were well balanced. Flexion and extension gaps were well balanced. The knee was flexed up. A lamina international marketing specialist was placed both medially and laterally. Any remaining meniscus was carefully removed using an electrocautery. Curved osteotome was used to remove any posterior osteophytes. Tibial tray and drop gayla were placed and once again confirmed a satisfactory tibial cut. A size 5 right narrow femoral trial was impacted onto the distal femur and had excellent fit and stability. The box for the posterior stabilized implant was prepared using a reamer and box cut osteotome. Size 3 tibial tray trial with a 9- mm insert trial was placed and the knee was taken through a range of motion. The knee had full extension to 130 degrees of flexion with satisfactory patellofemoral tracking. The patella was everted. A 7 mm of patellar bone and cartilage was carefully removed using an oscillating saw. The patella was sized to a size 32. Three peg holes were drilled through the size 32 guide. A 32 trial patella was placed and the knee was taken through range of motion. There was satisfactory patellofemoral tracking. All trials were carefully removed. The tibia was subluxed anteriorly and sized to a size 3. Proximal tibia was prepared using a size 3 keel punch. All bony cut surfaces were copiously irrigated with sterile saline and dried. Final implants were cemented into place starting with the tibia, followed by the femur , and last the patella. A 9-mm insert trial was placed and the knee was brought out into full extension. Tourniquet was turned down at 43 minutes. Electrocautery was used to obtain meticulous hemostasis. The knee was copiously irrigated with sterile saline. Once the cement had fully cured, the insert trial was removed. Any excess cement was removed from around the capsule and hardware. Final insert chosen was a 9-mm posterior stabilized articular insert, size 3/4. This was locked into position on the tibial tray without difficulty. Stability of the insert was checked and rechecked and noted to be stable. The extensor mechanism was closed using interrupted #1 Vicryl. The rest of the incision was closed in a layered fashion using 0 and 2- 0 Vicryl. The skin was closed using running 3-0 nylon suture. Sterile Xeroform , 4x4's, and Webril were used to cover the incision. Lopez wrap and cold pack were placed, patient was brought to the PACU in stable condition. Intended weightbearing will be weightbearing as tolerated. [id number]/[facility] #: [id number] [facility]ITALDen[place]
[2018-09-21 06:37] LABS: Hematocrit 34 % (35-47); Hemoglobin 11.6 g/dl (12.0-16.0); Mean Platelet Volume 7.7 fL (7.4-10.4); Platelet Count 305 10^3/ul (150-450)
[2018-09-21 06:41] LABS: INR 0.97 (0.77-1.02)
[2018-09-21 06:50] LABS: BUN/Creatinine Ratio 10.4 (8-20); EGFR Non-African American 78.7 (>60); Potassium 4.2 mmol/L (3.5-5.0)
[2018-09-21] MEDS: Magnesium Hydroxide LIQ* 30 ML UDC PO SCH ×2 (08:31→23:17)
[2018-09-21] MEDS: Citalopram TAB* 40 MG PO SCH (08:31)
[2018-09-21] MEDS: Docusate CAP* 100 MG PO SCH ×2 (08:31→23:17)
[2018-09-21] MEDS: Enoxaparin(*) 40 MG/0.4 ML SYR SUBCUT SCH (08:31)
[2018-09-21] MEDS: Vitamin THERAPEUTIC TAB PO SCH (08:31)
[2018-09-21] MEDS: traMADol TAB* 50 MG PO PRN (08:40)
[2018-09-21] MEDS: Cyclobenzaprine TAB* 10 MG PO PRN ×2 (10:53→21:49)
--- NOTE | 2018-09-21 11:00 | PN ---
Progress Note - Progress Note Date of Service: 09/21/18 SOAP: Subjective: []Patient was seen and examined at bedside. Knee pain is currently 10/10. She otherwise feels well without CP, SOB, dizziness or nausea. She denies history of DVT or PE. Does have a history of CML for which she sees Dr Meier. Objective: []General: Well appearing, NAD RLE: Right knee dressing CDI, cryo unit in use, thigh is soft. DF/PF intact, DP2 +, sensation intact to light touch distally. Calves are supple and nontender without erythema, edema or palpable cords Radial pulse tachy, regular per palpation. Assessment: []POD [address] Chris 09/20 Plan: []WBAT PT/OT Lovenox 40 mg sq qd x 30 days for DVT prophylaxis. History of CML for which she follows with Dr. Meier. I discussed this patient with Dr Rodriguez, will continue Gleevec daily and anticoagulate with lovenox 40 mg sq qd. Monitor platelets while she is anticoagulated. Tachycardic likely due to poor pain control currently 10/10. Patient was given oxycodone and cyclobenzaprine while I was in the room. If this does not produce better pain control she will need long acting morphine added. Vital Signs Temp 98.6 F 09/21/18 10:54 Pulse 111 09/21/18 10:54 Resp 18 09/21/18 10:53 BP 133/81 09/21/18 07:46 Pulse Ox 95 09/21/18 07:46 Intake & Output 09/20/18 09/21/18 09/21/18 18:59 06:59 18:59 Intake Total 1600 1255 1540 Output Total 300 2525 150 Balance 1300 -1270 1390 Weight 189 lb Intake: IV Fluids 1600 1035 LR 1600 993 NS 42 IVPB 105 55 ABX - CEFAZOLIN 105 55 Oral 1150 450 Output: Urine 150 Bishop 300 2525 Laboratory Last Values Hgb 11.6 g/dl (12.0-16.0) L 09/21/18 05:53 Hct 34 % (35-47) L 09/21/18 05:53 Plt Count 305 10^3/ul (150-450) 09/21/18 05:53 MPV 7.7 fL (7.4-10.4) 09/21/18 05:53 INR (Anticoag Therapy) 0.97 (0.77-1.02) 09/21/18 05:53 Sodium 136 mmol/L (135-145) 09/21/18 05:53 Potassium 4.2 mmol/L (3.5-5.0) 09/21/18 05:53 Chloride 103 mmol/L (101-111) 09/21/18 05:53 Carbon Dioxide 27 mmol/L (22-32) 09/21/18 05:53 Anion Gap 6 mmol/L (2-11) 09/21/18 05:53 BUN 8 mg/dL (6-24) 09/21/18 05:53 Creatinine 0.77 mg/dL (0.51-0.95) 09/21/18 05:53 Est GFR ( Amer) 95.3 (>60) 09/21/18 05:53 Est GFR (Non-Af Amer) 78.7 (>60) 09/21/18 05:53 BUN/Creatinine Ratio 10.4 (8-20) 09/21/18 05:53 Glucose 202 mg/dL (70-100) H 09/21/18 05:53 Calcium 9.0 mg/dL (8.6-10.3) 09/21/18 05:53
[2018-09-21 13:30] LABS: ABS Basophils 0 10^3/ul (0-0.2); ABS Eosinophils 0 10^3/ul (0-0.6); ABS Monocytes 0.9 10^3/ul (0-0.8); ABS Neutrophils 15.9 10^3/ul (1.5-7.7); ABS Nucleated RBC 0 10^3/ul; Eosinophil % 0 %; Lymphocyte % 5.4 %; Mean Corpuscular HGB Conc 32 g/dl (31-36); Mean Corpuscular Hemoglobin 31 pg (27-31); Mean Corpuscular Volume 96 fL (80-97); Nucleated Red Blood Cells % 0; Red Blood Count 3.62 10^6/ul (4.00-5.40); Red Cell Distribution Width 13 % (10.5-15); White Blood Count 17.8 10^3/ul (3.5-10.8)
[2018-09-21] MEDS ORDERED: Morphine TAB Extended Release (*) 30 MG TAB.ER PO SCH (15:00)
[2018-09-21] MEDS: Morphine TAB Extended Release (*) 15 MG TAB.ER PO SCH (15:25)
[2018-09-21 18:01] LABS: Urine Appearance Cloudy; Urine Bacteria 3+ (Absent); Urine Bilirubin Negative (Negative); Urine Blood 3+ (Negative); Urine Color Yellow; Urine Glucose Negative (Negative); Urine Ketones Trace (Negative); Urine Nitrite Negative (Negative); Urine Protein Negative (Negative); Urine Red Blood Cell 3+(>10/hpf) (Absent); Urine Specific Gravity 1.008 (1.010-1.030); Urine Urobilinogen Negative (Negative); Urine White Blood Cell 1+(6-10/hpf) (Absent)
--- NOTE | 2018-09-21 18:13 | PN ---
Subjective Date of Service: 09/21/18 Interval History: Sitting on edge of bed on assessment. Reports pain is right knee is 10/10 despite pain medication. Reports her right foot also feels swollen which makes it difficult to walk. Denies cp, palpitations, sob, nausea, vomiting, diarrhea, urinary symptoms, cough. Family History: Unchanged from Admission Social History: Unchanged from Admission Past Medical History: Unchanged from Admission Objective Active Medications: Alprazolam (Xanax Tab*) 1 mg PO TID PRN PRN Reason: ANXIETY Bisacodyl (Dulcolax Supp*) 10 mg MS DAILY PRN PRN Reason: constipation Citalopram Hydrobromide (Celexa Tab*) 40 mg PO QAM [facility] Last Admin: 09/21/18 08:31 Dose: 40 mg Cyclobenzaprine HCl (Flexeril Tab*) 5 mg PO TID PRN PRN Reason: SPASMS Last Admin: 09/21/18 10:53 Dose: 5 mg Diphenhydramine HCl (Benadryl Iv*) 25 mg IV Q6H PRN PRN Reason: itching Docusate Sodium (Colace Cap*) 100 mg PO BID [facility] Last Admin: 09/21/18 08:31 Dose: 100 mg Enoxaparin Sodium (Lovenox(*)) 40 mg SUBCUT Q24H [facility] Last Admin: 09/21/18 08:31 Dose: 40 mg Lactulose (Lactulose*) 30 ml PO Q6H PRN PRN Reason: constipation Magnesium Hydroxide (Milk Of Magnesia Liq*) 30 ml PO BID [facility] Last Admin: 09/21/18 08:31 Dose: 30 ml Magnesium Hydroxide (Milk Of Magnesia Liq*) 30 ml PO Q6H PRN PRN Reason: constipation Morphine Sulfate (Morphine Vial*) 2 mg IV Q2H PRN PRN Reason: PAIN Last Admin: 09/21/18 12:47 Dose: 2 mg Morphine Sulfate (Ms Contin(*)) 15 mg PO Q12H [facility] Last Admin: 09/21/18 15:25 Dose: 15 mg Multivitamins (Theragran Tab*) 1 tab PO DAILY [facility] Last Admin: 09/21/18 08:31 Dose: 1 tab Ondansetron HCl (Zofran Inj*) 4 mg IV Q6H PRN PRN Reason: nausea Oxycodone HCl (Roxycodone Tab*) 10 mg PO Q4H PRN PRN Reason: PAIN - SEVERE Last Admin: 09/21/18 16:19 Dose: 10 mg Tramadol HCl (Ultram*) 50 mg PO Q6H PRN PRN Reason: PAIN Last Admin: 09/21/18 08:40 Dose: 50 mg Vital Signs - 8 hr 09/21/18 09/21/18 09/21/18 10:49 10:53 10:54 Temperature 98.6 F Pulse Rate 111 Respiratory 18 18 Rate Blood Pressure (mmHg) O2 Sat by Pulse Oximetry 09/21/18 09/21/18 09/21/18 11:17 12:47 12:51 Temperature 98.7 F Pulse Rate 107 Respiratory 16 18 18 Rate Blood Pressure 136/77 (mmHg) O2 Sat by Pulse 95 Oximetry 09/21/18 09/21/18 09/21/18 12:52 14:20 15:25 Temperature Pulse Rate Respiratory 18 18 20 Rate Blood Pressure (mmHg) O2 Sat by Pulse Oximetry 09/21/18 09/21/18 09/21/18 15:46 16:00 16:19 Temperature 99.2 F Pulse Rate 103 Respiratory 20 20 Rate Blood Pressure 150/81 (mmHg) O2 Sat by Pulse 98 98 Oximetry 09/21/18 18:06 Temperature Pulse Rate Respiratory 18 Rate Blood Pressure (mmHg) O2 Sat by Pulse Oximetry Oxygen Devices in Use Now: None Appearance: NAD Eyes: No Scleral Icterus Ears/Nose/Mouth/Throat: Clear Oropharnyx, Mucous Membranes Moist Neck: NL Appearance and Movements; NL JVP Respiratory: Symmetrical Chest Expansion and Respiratory Effort, Clear to Auscultation Cardiovascular: NL Sounds; No Murmurs; No JVD, RRR, - - Trace edema to right foot Abdominal: NL Sounds; No Tenderness; No Distention Lymphatic: No Cervical Adenopathy Extremities: No Clubbing, Cyanosis Skin: No Rash or Ulcers Neurological: Alert and Oriented x 3 Nutrition: Taking PO's Result Diagrams: 09/21/18 05:53 09/21/18 05:53 Assess/Plan/Problems-Billing Assessment: This is a 53 year old female with history of CML and fibromyalgia/ chronic pain admitted for elective RTKA: - Patient Problems (1) History of total right knee replacement Comment: - POD 1 - Management per ortho (2) Tachycardia Comment: - Suspected secondary to pain as she is rating it at 10/10 - Placed on tele for further evaluation - UA obtained and could be poor catch. Since patient is symptoms free and afebrile, I will hold on starting abx until culture results. - Chest Xray wnl - Additional pain medications ordered by ortho, monitor HR as pain more controlled (3) Leukocytosis Comment: - Suspected due to recent surgery and hx of CML. - UA obtained and could be poor catch. Since patient is symptom free and afebrile, I will hold on starting abx until culture results. (4) CML (chronic myelocytic leukemia) Comment: - Cont Gleevec per Dr Graham's recommendation (5) Fibromyalgia Comment: - Cont home medications (6) DVT prophylaxis Comment: - Ortho will be starting Lovenox - Monitor PLT due to hx of CML Status and Disposition: Thank you for allowing us to assist in the care of this patient. We will follow along during this patient's hospital stay. Attending: Shannan Gaston
[2018-09-22] MEDS: Morphine TAB Extended Release (*) 15 MG TAB.ER PO SCH ×2 (03:43→15:00)
[2018-09-22 06:14] LABS: Hematocrit 32 % (35-47); Hemoglobin 11.1 g/dl (12.0-16.0); Mean Corpuscular HGB Conc 35 g/dl (31-36); Mean Corpuscular Hemoglobin 33 pg (27-31); Mean Corpuscular Volume 94 fL (80-97); Mean Platelet Volume 7.1 fL (7.4-10.4); Platelet Count 285 10^3/ul (150-450); Red Blood Count 3.38 10^6/ul (4.00-5.40); Red Cell Distribution Width 13 % (10.5-15); White Blood Count 13.8 10^3/ul (3.5-10.8)
[2018-09-22 06:24] LABS: INR 0.98 (0.77-1.02)
[2018-09-22 06:57] LABS: ABS Basophils 0 10^3/ul (0-0.2); ABS Eosinophils 0 10^3/ul (0-0.6); ABS Lymphocytes 1.8 10^3/ul (1.0-4.8); ABS Monocytes 1.7 10^3/ul (0-0.8); ABS Neutrophils 10.3 10^3/ul (1.5-7.7); ABS Nucleated RBC 0 10^3/ul; Eosinophil % 0.2 %; Lymphocyte % 12.7 %; Nucleated Red Blood Cells % 0
[2018-09-22] MEDS: Cyclobenzaprine TAB* 10 MG PO PRN (07:13)
[2018-09-22] MEDS: oxyCODONE TAB* 5 MG TAB PO PRN ×3 (07:13→20:17)
[2018-09-22] MEDS ORDERED: NS 0.9% 1000 ML* 1,000 ML IV SCH ×2 (08:00→18:15)
[2018-09-22] MEDS: Magnesium Hydroxide LIQ* 30 ML UDC PO SCH ×3 (08:17→20:19)
[2018-09-22] MEDS: Enoxaparin(*) 40 MG/0.4 ML SYR SUBCUT SCH (08:17)
[2018-09-22] MEDS: Docusate CAP* 100 MG PO SCH ×2 (08:17→20:16)
[2018-09-22] MEDS: BuPROPion XL* 150 MG TAB.XL PO SCH (08:17)
[2018-09-22] MEDS: Citalopram TAB* 40 MG PO SCH (08:17)
[2018-09-22] MEDS: Vitamin THERAPEUTIC TAB PO SCH (08:17)
[2018-09-22] MEDS ORDERED: Iohexol 350* (CONTRAST) 500 ML MDV IV SCH (08:21)
[2018-09-22] MEDS ORDERED: cefTRIAXone(*) 1 GM in NS 0.9% 50 ML* 50 ML IVPB SCH (08:30)
[2018-09-22] MEDS: traMADol TAB* 50 MG PO PRN (09:16)
--- NOTE | 2018-09-22 16:01 | PN ---
Progress Note - Progress Note Date of Service: 09/22/18 SOAP: Subjective: []Patient was seen and examined at bedside. She is currently comfortable with only mild soreness of her right knee. She does report getting to 10/10 pain with activity. Denies chest pain, shortness of breath, dizziness, nausea, dysuria. She reports confusion which is confirmed by her . Objective: []General: Well appearing, NAD RLE: Right knee dressing changed, incision CDI, cryo unit in use, thigh is soft. DF/PF intact, DP2+, sensation intact to light touch distally. Calves are supple and nontender without erythema, edema or palpable cords Assessment: []POD [address] Chris 09/20 Plan: []WBAT PT/OT Lovenox 40 mg sq qd x 30 days for DVT prophylaxis. History of CML for which she follows with Dr. Meier. Monitor platelets while she is anticoagulated. Tachycardic- On ceftriaxone for UTI. Tele monitored Confusion- discussed with hospitalist service, decreasing narcotics Vital Signs Temp 98.5 F 09/22/18 11:29 Pulse 114 09/22/18 15:03 Resp 18 09/22/18 15:00 BP 116/71 09/22/18 11:29 Pulse Ox 97 09/22/18 11:29 Intake & Output 09/21/18 09/22/18 09/22/18 18:59 06:59 18:59 Intake Total 1860 600 390 Output Total 350 2300 1050 Balance 1510 -1700 -660 Intake: IV Fluids 1035 LR 993 NS 42 IVPB 55 ABX - CEFAZOLIN 55 Oral 770 600 390 Output: Urine 350 2300 1050 Other: # Bowel Movements 0 Laboratory Last Values WBC 13.8 10^3/ul (3.5-10.8) H 09/22/18 06:01 RBC 3.38 10^6/ul (4.00-5.40) L 09/22/18 06:01 Hgb 11.1 g/dl (12.0-16.0) L 09/22/18 06:01 Hct 32 % (35-47) L 09/22/18 06:01 MCV 94 fL (80-97) 09/22/18 06:01 MCH 33 pg (27-31) H 09/22/18 06:01 MCHC 35 g/dl (31-36) 09/22/18 06:01 RDW 13 % (10.5-15) 09/22/18 06:01 Plt Count 285 10^3/ul (150-450) 09/22/18 06:01 MPV 7.1 fL (7.4-10.4) L 09/22/18 06:01 Neut % (Auto) 74.6 % 09/22/18 06:01 Lymph % (Auto) 12.7 % 09/22/18 06:01 Bollinger % (Auto) 12.4 % 09/22/18 06:01 Eos % (Auto) 0.2 % 09/22/18 06:01 Baso % (Auto) 0.1 % 09/22/18 06:01 Absolute Neuts (auto) 10.3 10^3/ul (1.5-7.7) H 09/22/18 06:01 Absolute Lymphs (auto) 1.8 10^3/ul (1.0-4.8) 09/22/18 06:01 Absolute Monos (auto) 1.7 10^3/ul (0-0.8) H 09/22/18 06:01 Absolute Eos (auto) 0 10^3/ul (0-0.6) 09/22/18 06:01 Absolute Basos (auto) 0 10^3/ul (0-0.2) 09/22/18 06:01 Absolute Nucleated RBC 0 10^3/ul 09/22/18 06:01 Nucleated RBC % 0 09/22/18 06:01 INR (Anticoag Therapy) 0.98 (0.77-1.02) 09/22/18 06:01 Sodium 136 mmol/L (135-145) 09/21/18 05:53 Potassium 4.2 mmol/L (3.5-5.0) 09/21/18 05:53 Chloride 103 mmol/L (101-111) 09/21/18 05:53 Carbon Dioxide 27 mmol/L (22-32) 09/21/18 05:53 Anion Gap 6 mmol/L (2-11) 09/21/18 05:53 BUN 8 mg/dL (6-24) 09/21/18 05:53 Creatinine 0.77 mg/dL (0.51-0.95) 09/21/18 05:53 Est GFR ( Amer) 95.3 (>60) 09/21/18 05:53 Est GFR (Non-Af Amer) 78.7 (>60) 09/21/18 05:53 BUN/Creatinine Ratio 10.4 (8-20) 09/21/18 05:53 Glucose 202 mg/dL (70-100) H 09/21/18 05:53 Calcium 9.0 mg/dL (8.6-10.3) 09/21/18 05:53 Urine Color Yellow 09/21/18 17:30 Urine Appearance Cloudy 09/21/18 17:30 Urine pH 7.0 (5-9) 09/21/18 17:30 Ur Specific Sidney 1.008 (1.010-1.030) L 09/21/18 17:30 Urine Protein Negative (Negative) 09/21/18 17:30 Urine Ketones Trace (Negative) A 09/21/18 17:30 Urine Blood 3+ (Negative) A 09/21/18 17:30 Urine Nitrate Negative (Negative) 09/21/18 17:30 Urine Bilirubin Negative (Negative) 09/21/18 17:30 Urine Urobilinogen Negative (Negative) 09/21/18 17:30 Ur Leukocyte Esterase Negative (Negative) 09/21/18 17:30 Urine WBC (Auto) 1+(6-10/hpf) (Absent) A 09/21/18 17:30 Urine RBC (Auto) 3+(>10/hpf) (Absent) A 09/21/18 17:30 Ur Squamous Epith Cells Present (Absent) A 09/21/18 17:30 Urine Bacteria 3+ (Absent) A 09/21/18 17:30 Urine Glucose Negative (Negative) 09/21/18 17:30
[2018-09-22 16:17] LABS: BUN/Creatinine Ratio 9.5 (8-20); Calcium 8.2 mg/dL (8.6-10.3); EGFR Non-African American 99.2 (>60); Magnesium 2.4 mg/dL (1.9-2.7); Potassium 3.7 mmol/L (3.5-5.0)
[2018-09-22] MEDS: ALPRAZolam TAB* 0.5 MG PO PRN (16:43)
[2018-09-22 16:51] LABS: TSH (Thyroid Stimulating Horm) 1.58 mcIU/mL (0.34-5.60)
[2018-09-22] MEDS ORDERED: IMATINIB 100 MG PO SCH (17:00)
--- NOTE | 2018-09-22 18:12 | PN ---
Subjective Date of Service: 09/22/18 Interval History: Call received from this morning regarding elevated HR overnight and into this morning. Due to patient's continued tachycardia and hx of CML, a cta of the chest was obtained and was unremarkable. In addition due to continued tachycardia, patient was started on Rocephin to treat possible UTI, awaiting urine cultures. On assessment this afternoon patient is sitting in bed. She reports pain in knee is 10/10 with activity. Patient is noted to have occasional tangential thoughts during conversation. Denies chest pain, palpitations, nausea, vomiting, sob, fever/chills, urinary symptoms. Family History: Unchanged from Admission Social History: Unchanged from Admission Past Medical History: Unchanged from Admission Objective Active Medications: Alprazolam (Xanax Tab*) 1 mg PO TID PRN PRN Reason: ANXIETY Last Admin: 09/22/18 16:43 Dose: 1 mg Bisacodyl (Dulcolax Supp*) 10 mg DE DAILY PRN PRN Reason: constipation Bupropion HCl (Wellbutrin Xl *) 150 mg PO QAM [facility] Last Admin: 09/22/18 08:17 Dose: 150 mg Citalopram Hydrobromide (Celexa Tab*) 40 mg PO QAM [facility] Last Admin: 09/22/18 08:17 Dose: 40 mg Cyclobenzaprine HCl (Flexeril Tab*) 5 mg PO TID PRN PRN Reason: SPASMS Last Admin: 09/22/18 07:13 Dose: 5 mg Diphenhydramine HCl (Benadryl Iv*) 25 mg IV Q6H PRN PRN Reason: itching Docusate Sodium (Colace Cap*) 100 mg PO BID [facility] Last Admin: 09/22/18 08:17 Dose: 100 mg Enoxaparin Sodium (Lovenox(*)) 40 mg SUBCUT Q24H [facility] Last Admin: 09/22/18 08:17 Dose: 40 mg Ceftriaxone Sodium 1 gm/ (Sodium Chloride) 50 mls @ 200 mls/hr IVPB Q24H [facility] Last Admin: 09/22/18 09:13 Dose: 200 mls/hr Sodium Chloride (Ns 0.9% 1000 Ml*) 1,000 mls @ 100 mls/hr IV PER RATE [facility] Stop: 09/23/18 04:14 Imatinib Mesylate (Gleevec (Nf)) 200 mg PO DAILY@1700 [facility] Iohexol (Omnipaque 350 (Contrast)-) 74 ml IV ONCE [facility] Stop: 09/24/18 08:20 Last Admin: 09/22/18 09:02 Dose: 74 ml Lactulose (Lactulose*) 30 ml PO Q6H PRN PRN Reason: constipation Magnesium Hydroxide (Milk Of Magnesia Liq*) 30 ml PO BID [facility] Last Admin: 09/22/18 08:17 Dose: 30 ml Magnesium Hydroxide (Milk Of Magnesia Liq*) 30 ml PO Q6H PRN PRN Reason: constipation Morphine Sulfate (Ms Contin(*)) 15 mg PO Q12H [facility] Last Admin: 09/22/18 15:00 Dose: 15 mg Multivitamins (Theragran Tab*) 1 tab PO DAILY [facility] Last Admin: 09/22/18 08:17 Dose: 1 tab Ondansetron HCl (Zofran Inj*) 4 mg IV Q6H PRN PRN Reason: nausea Oxycodone HCl (Roxycodone Tab*) 5 mg PO Q4H PRN PRN Reason: PAIN - SEVERE Vital Signs - 8 hr 09/22/18 09/22/18 09/22/18 10:13 11:29 11:31 Temperature 98.5 F Pulse Rate 133 111 Respiratory 17 16 Rate Blood Pressure 116/71 (mmHg) O2 Sat by Pulse 97 Oximetry 09/22/18 09/22/18 09/22/18 11:51 14:24 14:58 Temperature Pulse Rate 144 Respiratory 18 18 Rate Blood Pressure (mmHg) O2 Sat by Pulse Oximetry 09/22/18 09/22/18 09/22/18 15:00 15:03 15:30 Temperature 98.8 F Pulse Rate 114 112 Respiratory 18 22 Rate Blood Pressure 150/72 (mmHg) O2 Sat by Pulse 96 Oximetry 09/22/18 09/22/18 09/22/18 16:00 16:43 17:39 Temperature Pulse Rate 103 Respiratory 16 Rate Blood Pressure (mmHg) O2 Sat by Pulse 96 Oximetry 09/22/18 17:41 Temperature Pulse Rate Respiratory 18 Rate Blood Pressure (mmHg) O2 Sat by Pulse Oximetry Oxygen Devices in Use Now: None Appearance: Comfortable, NAD Eyes: No Scleral Icterus Ears/Nose/Mouth/Throat: Clear Oropharnyx, Mucous Membranes Moist Neck: NL Appearance and Movements; NL JVP Respiratory: Symmetrical Chest Expansion and Respiratory Effort, Clear to Auscultation Cardiovascular: NL Sounds; No Murmurs; No JVD, No Edema, - - Regular rhythm. Tachycardia noted Abdominal: NL Sounds; No Tenderness; No Distention Lymphatic: No Cervical Adenopathy Extremities: No Edema, No Clubbing, Cyanosis Skin: No Rash or Ulcers Neurological: Alert and Oriented x 3 Nutrition: Taking PO's Result Diagrams: 09/22/18 06:01 09/22/18 15:49 Additional Lab and Data: Laboratory Results - last 24 hr 09/22/18 09/22/18 09/22/18 06:01 06:01 15:49 WBC 13.8 H RBC 3.38 L Hgb 11.1 L Hct 32 L MCV 94 MCH 33 H MCHC 35 RDW 13 Plt Count 285 MPV 7.1 L Neut % (Auto) 74.6 Lymph % (Auto) 12.7 [place] % (Auto) 12.4 Eos % (Auto) 0.2 Baso % (Auto) 0.1 Absolute Neuts (auto) 10.3 H Absolute Lymphs (auto) 1.8 Absolute Monos (auto) 1.7 H Absolute Eos (auto) 0 Absolute Basos (auto) 0 Absolute Nucleated RBC 0 Nucleated RBC % 0 INR (Anticoag Therapy) 0.98 Sodium 131 L Potassium 3.7 Chloride 101 Carbon Dioxide 24 Anion Gap 6 BUN 6 Creatinine 0.63 Est GFR ( Amer) 120.1 Est GFR (Non-Af Amer) 99.2 BUN/Creatinine Ratio 9.5 Glucose 173 H Calcium 8.2 L Magnesium 2.4 TSH 1.58 Microbiology and Other Data: Microbiology 09/21/18 17:30 Urine Culture - Final Urine No Growth (<1,000 CFU/mL) Assess/Plan/Problems-Billing Assessment: This is a 53 year old female with history of CML and fibromyalgia/ chronic pain admitted for elective RTKA: - Patient Problems (1) History of total right knee replacement Comment: - POD 2 - Management per ortho (2) Confusion Comment: - Tangential thoughts during assessment. - Confusion reports by nursing staff and ortho PA - Discussed with ortho PA, plan is to reduce pain medication as patient tolerates. - Cont to monitor (3) Tachycardia Comment: - Cont tele - Cont Rocephin for possible UTI, awaiting cultures. - Chest Xray wnl - CTA unremarkable - EKG had not acute findings - Mag wnl, TSH wnl, BMP wnl - Cont gentle IVF hydration (4) Leukocytosis Comment: - Trending down - Suspected due to recent surgery and hx of CML. - Cont Rocephin, awaiting urine cultures (5) CML (chronic myelocytic leukemia) Comment: - Cont Gleevec per Dr Graham's recommendation (6) DVT prophylaxis Comment: - Ortho will be starting Lovenox - Monitor PLT due to hx of CML Status and Disposition: Thank you for allowing us to assist in the care of this patient. We will follow along during this patient's hospital stay. Attending: Ant Sahu
[2018-09-23] MEDS: Morphine TAB Extended Release (*) 15 MG TAB.ER PO SCH (03:16)
[2018-09-23 06:13] LABS: ABS Basophils 0.1 10^3/ul (0-0.2); ABS Eosinophils 0.1 10^3/ul (0-0.6); ABS Monocytes 1.1 10^3/ul (0-0.8); ABS Nucleated RBC 0 10^3/ul; Eosinophil % 1.1 %; Hematocrit 29 % (35-47); Hemoglobin 9.7 g/dl (12.0-16.0); Lymphocyte % 15.9 %; Mean Corpuscular HGB Conc 34 g/dl (31-36); Mean Corpuscular Hemoglobin 32 pg (27-31); Mean Corpuscular Volume 95 fL (80-97); Mean Platelet Volume 7.7 fL (7.4-10.4); Nucleated Red Blood Cells % 0; Platelet Count 270 10^3/ul (150-450); Red Blood Count 3.01 10^6/ul (4.00-5.40); Red Cell Distribution Width 13 % (10.5-15); White Blood Count 12.3 10^3/ul (3.5-10.8)
[2018-09-23 06:20] LABS: INR 0.97 (0.77-1.02)
[2018-09-23 06:35] LABS: BUN/Creatinine Ratio 8.2 (8-20); Calcium 8.4 mg/dL (8.6-10.3); Potassium 3.7 mmol/L (3.5-5.0)
[2018-09-23] MEDS ORDERED: Potassium Chlor TAB* 20 MEQ TAB.ER PO ONE (07:13)
[2018-09-23] MEDS: Citalopram TAB* 40 MG PO SCH (08:35)
[2018-09-23] MEDS: Docusate CAP* 100 MG PO SCH (08:35)
[2018-09-23] MEDS: oxyCODONE TAB* 5 MG TAB PO PRN (08:36)
[2018-09-23] MEDS: Vitamin THERAPEUTIC TAB PO SCH (08:37)
[2018-09-23] MEDS: Enoxaparin(*) 40 MG/0.4 ML SYR SUBCUT SCH (08:37)
[2018-09-23] MEDS: BuPROPion XL* 150 MG TAB.XL PO SCH (08:42)
[2018-09-23] MEDS: ALPRAZolam TAB* 0.5 MG PO PRN (08:49)
[2018-09-23] MEDS: Magnesium Hydroxide LIQ* 30 ML UDC PO SCH (09:28)
--- NOTE | 2018-09-23 10:36 | PN ---
Subjective Date of Service: 09/23/18 Interval History: Patient resting in reclined on assessment. Reports she feels ready for discharge. Family History: Unchanged from Admission Social History: Unchanged from Admission Past Medical History: Unchanged from Admission Objective Active Medications: Alprazolam (Xanax Tab*) 1 mg PO TID PRN PRN Reason: ANXIETY Last Admin: 09/23/18 08:49 Dose: 1 mg Bisacodyl (Dulcolax Supp*) 10 mg SC DAILY PRN PRN Reason: constipation Bupropion HCl (Wellbutrin Xl *) 150 mg PO QAM [facility] Last Admin: 09/23/18 08:42 Dose: 150 mg Citalopram Hydrobromide (Celexa Tab*) 40 mg PO QAM [facility] Last Admin: 09/23/18 08:35 Dose: 40 mg Cyclobenzaprine HCl (Flexeril Tab*) 5 mg PO TID PRN PRN Reason: SPASMS Last Admin: 09/22/18 07:13 Dose: 5 mg Diphenhydramine HCl (Benadryl Iv*) 25 mg IV Q6H PRN PRN Reason: itching Docusate Sodium (Colace Cap*) 100 mg PO BID [facility] Last Admin: 09/23/18 08:35 Dose: 100 mg Enoxaparin Sodium (Lovenox(*)) 40 mg SUBCUT Q24H [facility] Last Admin: 09/23/18 08:37 Dose: 40 mg Imatinib Mesylate (Gleevec (Nf)) 200 mg PO DAILY@1700 [facility] Last Admin: 09/22/18 18:21 Dose: 200 mg Iohexol (Omnipaque 350 (Contrast)-) 74 ml IV ONCE [facility] Stop: 09/24/18 08:20 Last Admin: 09/22/18 09:02 Dose: 74 ml Lactulose (Lactulose*) 30 ml PO Q6H PRN PRN Reason: constipation Magnesium Hydroxide (Milk Of Magnesia Liq*) 30 ml PO BID [facility] Last Admin: 09/23/18 09:28 Dose: Not Given Magnesium Hydroxide (Milk Of Magnesia Liq*) 30 ml PO Q6H PRN PRN Reason: constipation Morphine Sulfate (Ms Contin(*)) 15 mg PO Q12H [facility] Last Admin: 09/23/18 03:16 Dose: 15 mg Multivitamins (Theragran Tab*) 1 tab PO DAILY [facility] Last Admin: 09/23/18 08:37 Dose: 1 tab Ondansetron HCl (Zofran Inj*) 4 mg IV Q6H PRN PRN Reason: nausea Oxycodone HCl (Roxycodone Tab*) 5 mg PO Q4H PRN PRN Reason: PAIN - SEVERE Last Admin: 09/23/18 08:36 Dose: 5 mg Vital Signs - 8 hr 09/23/18 09/23/18 09/23/18 03:16 03:25 03:56 Temperature 98.2 F Pulse Rate 121 110 Respiratory 16 18 Rate Blood Pressure 152/74 (mmHg) O2 Sat by Pulse 97 Oximetry 09/23/18 09/23/18 09/23/18 03:57 06:03 07:40 Temperature Pulse Rate Respiratory 16 20 Rate Blood Pressure (mmHg) O2 Sat by Pulse 97 Oximetry 09/23/18 09/23/18 09/23/18 08:14 08:36 08:49 Temperature 98.6 F Pulse Rate 121 Respiratory 16 20 20 Rate Blood Pressure 121/63 (mmHg) O2 Sat by Pulse 99 Oximetry Oxygen Devices in Use Now: None Appearance: Comfortable, NAD Eyes: No Scleral Icterus Ears/Nose/Mouth/Throat: Clear Oropharnyx, Mucous Membranes Moist Neck: NL Appearance and Movements; NL JVP Respiratory: Symmetrical Chest Expansion and Respiratory Effort, Clear to Auscultation Cardiovascular: NL Sounds; No Murmurs; No JVD, RRR, No Edema Abdominal: NL Sounds; No Tenderness; No Distention Lymphatic: No Cervical Adenopathy Skin: No Rash or Ulcers Neurological: Alert and Oriented x 3 Nutrition: Taking PO's Result Diagrams: 09/23/18 05:56 09/23/18 05:56 Additional Lab and Data: Laboratory Results - last 24 hr Laboratory Results - last 24 hr 09/23/18 09/23/18 09/23/18 05:56 05:56 05:56 WBC 12.3 H RBC 3.01 L Hgb 9.7 L Hct 29 L MCV 95 MCH 32 H MCHC 34 RDW 13 Plt Count 270 MPV 7.7 Neut % (Auto) 73.0 Lymph % (Auto) 15.9 [place] % (Auto) 9.2 Eos % (Auto) 1.1 Baso % (Auto) 0.8 Absolute Neuts (auto) 9.0 H Absolute Lymphs (auto) 2.0 Absolute Monos (auto) 1.1 H Absolute Eos (auto) 0.1 Absolute Basos (auto) 0.1 Absolute Nucleated RBC 0 Nucleated RBC % 0 INR (Anticoag Therapy) 0.97 Sodium 135 Potassium 3.7 Chloride 103 Carbon Dioxide 27 Anion Gap 5 BUN 5 L Creatinine 0.61 Est GFR ( Amer) 124.6 Est GFR (Non-Af Amer) 103.0 BUN/Creatinine Ratio 8.2 Glucose 151 H Hemoglobin A1c Calcium 8.4 L 09/23/18 05:56 WBC RBC Hgb Hct MCV MCH MCHC RDW Plt Count MPV Neut % (Auto) Lymph % (Auto) [place] % (Auto) Eos % (Auto) Baso % (Auto) Absolute Neuts (auto) Absolute Lymphs (auto) Absolute Monos (auto) Absolute Eos (auto) Absolute Basos (auto) Absolute Nucleated RBC Nucleated RBC % INR (Anticoag Therapy) Sodium Potassium Chloride Carbon Dioxide Anion Gap BUN Creatinine Est GFR ( Amer) Est GFR (Non-Af Amer) BUN/Creatinine Ratio Glucose Hemoglobin A1c 6.4 H Calcium Microbiology and Other Data: Microbiology 09/21/18 17:30 Urine Culture - Final Urine No Growth (<1,000 CFU/mL) Assess/Plan/Problems-Billing Assessment: This is a 53 year old female with history of CML and fibromyalgia/ chronic pain admitted for elective RTKA: - Patient Problems (1) History of total right knee replacement Comment: - POD 3 - Management per ortho (2) Confusion Comment: - Confusion yesterday, therefore, narcotics reduced. - Much improved today (3) Tachycardia Comment: - Low 100s at rest. - Unknown etiology. Secondary causes ruled out. - Urine cultures negative, therefore, abx stopped - Chest Xray wnl - CTA unremarkable - EKG had no acute findings and was similar to previous - Mag wnl, TSH wnl, BMP wnl - Patient should monitor and record heart rate at home. - Should should follow up with her Primary care provider if tachycardia continues as she might need further evaluation or treatment with BB - If any new/worsening symptoms she should return to ED (4) Leukocytosis Comment: - Trending down (5) CML (chronic myelocytic leukemia) Comment: - Cont Gleevec per Dr Graham's recommendation (6) DVT prophylaxis Comment: - Ortho will be starting Lovenox - Monitor PLT due to hx of CML Status and Disposition: Thank you for allowing us to assist in the care of this patient. We will follow along during this patient's hospital stay. Attending: Ant Sahu
--- NOTE | 2018-09-23 11:11 | PN ---
Progress Note - Progress Note Date of Service: 09/23/18 SOAP: Subjective: []Patient seen OOB in chair, doing well. Denies SOB, CP, palpitations or dizziness. Fully worked up re asymptomatic tachycardia from hospitalist staff without secondary etiology. Patient feels pain well managed and would like to go home today. Objective: [] Vital Signs Temp 98.6 F 09/23/18 08:14 Pulse 121 09/23/18 08:14 Resp 20 09/23/18 08:49 BP 121/63 09/23/18 08:14 Pulse Ox 99 09/23/18 08:14 Intake & Output 09/22/18 09/23/18 09/23/18 18:59 06:59 18:59 Intake Total 1385 1600 Output Total 2250 800 Balance -865 800 Intake: IV Fluids 940 980 NS 940 980 IVPB 55 NS 55 Oral 390 620 Output: Urine 2250 800 Other: Estimated Void Large Large # Bowel Movements 0 # Voids 1 1 Laboratory Results - last 24 hr 09/22/18 09/23/18 09/23/18 15:49 05:56 05:56 WBC 12.3 H RBC 3.01 L Hgb 9.7 L Hct 29 L MCV 95 MCH 32 H MCHC 34 RDW 13 Plt Count 270 MPV 7.7 Neut % (Auto) 73.0 Lymph % (Auto) 15.9 [place] % (Auto) 9.2 Eos % (Auto) 1.1 Baso % (Auto) 0.8 Absolute Neuts (auto) 9.0 H Absolute Lymphs (auto) 2.0 Absolute Monos (auto) 1.1 H Absolute Eos (auto) 0.1 Absolute Basos (auto) 0.1 Absolute Nucleated RBC 0 Nucleated RBC % 0 INR (Anticoag Therapy) 0.97 Sodium 131 L Potassium 3.7 Chloride 101 Carbon Dioxide 24 Anion Gap 6 BUN 6 Creatinine 0.63 Est GFR ( Amer) 120.1 Est GFR (Non-Af Amer) 99.2 BUN/Creatinine Ratio 9.5 Glucose 173 H Hemoglobin A1c Calcium 8.2 L Magnesium 2.4 TSH 1.58 09/23/18 09/23/18 05:56 05:56 WBC RBC Hgb Hct MCV MCH MCHC RDW Plt Count MPV Neut % (Auto) Lymph % (Auto) [place] % (Auto) Eos % (Auto) Baso % (Auto) Absolute Neuts (auto) Absolute Lymphs (auto) Absolute Monos (auto) Absolute Eos (auto) Absolute Basos (auto) Absolute Nucleated RBC Nucleated RBC % INR (Anticoag Therapy) Sodium 135 Potassium 3.7 Chloride 103 Carbon Dioxide 27 Anion Gap 5 BUN 5 L Creatinine 0.61 Est GFR ( Amer) 124.6 Est GFR (Non-Af Amer) 103.0 BUN/Creatinine Ratio 8.2 Glucose 151 H Hemoglobin A1c 6.4 H Calcium 8.4 L Magnesium TSH Right knee incision benign, no drainage calf NT and soft +DF/PF right calf sensation and circulation remain intact distally - Low 100s at rest. - Unknown etiology. Secondary causes ruled out. - Urine cultures negative, therefore, abx stopped - Chest Xray wnl - CTA unremarkable - EKG had no acute findings and was similar to previous - Mag wnl, TSH wnl, BMP wnl - Patient should monitor and record heart rate at home. - Should should follow up with her Primary care provider if tachycardia continues as she might need further evaluation or treatment with BB - If any new/worsening symptoms she should return to ED Assessment: []s/p right total knee arthroplasty POD #3 Plan: []Discharge home today Follow up as scheduled with Dr Chris 10-14 days Lovenox 40 mg sq x30 days post op DVT prophylaxis Medical plan as above
[2018-09-23 14:30] VITALS: BP 140/82
--- NOTE | 2018-09-23 21:52 | DS ---
DISCHARGE SUMMARY: DATE OF ADMISSION: 09/20/18 DATE OF DISCHARGE: 09/23/18 ATTENDING PHYSICIAN: Dr. Kristan Chris.* (DICTATED BY GEORGE VARGAS) ADMISSION DIAGNOSIS: Severe end-stage degenerative osteoarthritis, right knee joint. DISCHARGE DIAGNOSIS: Severe end-stage degenerative osteoarthritis, right knee joint. SURGERY PERFORMED: Right total knee arthroplasty. HOSPITAL COURSE: The patient is a 53-year-old female with increasingly severe right knee pain. Her plain films reveal severe end-stage osteoarthritis. She failed conservative management with anti-inflammatories, pain medications, and intraarticular cortisone injections as well as physical therapy. Due to increased pain and decreased quality of life, she elected to proceed with surgical intervention. She was taken to the operating room under the care of Dr. Kristan Chris for the aforementioned procedure on 09/20/18. She tolerated the procedure well and left the operating room in stable condition. Postoperatively, she had some difficulties medically with poor pain control initially. She also was running a little tachycardic, although essentially asymptomatic. It was felt that her urine looked cloudy and a UA C and S was done and ceftriaxone started. This was found to be negative of UTI. Therefore, antibiotics for this were discontinued. She also had workup for the tachycardia with chest x-ray, CTA, EKG, all within normal limits. he was asymptomatic with low 100 heart rate at rest. The patient is feeling well postoperative day #3 and feels stable for discharge to home. I spoke with hospitalist staff who also feels that she is medically stable for discharge to home and to follow up with her primary care provider regarding the high resting heart rate. CONDITION ON DISCHARGE: Temperature 98.6, pulse 121, respiratory rate 16, O2 saturation 99% on room air, blood pressure 121/63. Her right knee incision is healing without drainage, erythema, evidence of infection. Her calf is soft and nontender. She has active dorsiflexion of the right ankle without pain. Her sensation and circulation remain intact. PLAN: The patient to be discharged to home this afternoon. She is provided with a prescription of oxycodone 5 mg 1 p.o. q.4 hours p.r.n. pain, #42, MDD of 6. She will continue with Lovenox 40 mg subcu daily x1 month postoperatively for DVT prophylaxis. Both of these prescriptions were called in to [facility] on [address]. She is scheduled to follow up with Dr. Chris in 10 to 14 days in the office. It is recommended that she follow up with her primary care provider as per Medicine's recommendations regarding the high resting heart rate. All questions were answered. GEORGE VARGAS [id number]/[facility] #: [id number] CAM
== END 2018-09-23 14:00 | disposition home or self-care (01) | DRG 470 ==
LOC: AA 14:02 → SSU 20:30
PROVIDERS: ADMIT Orthopaedic Surgery Adult Reconstructive Orthopaedic Surgery; ATTEND Orthopaedic Surgery Adult Reconstructive Orthopaedic Surgery
PROC: 0SRC069 Replacement of Right Knee Joint with Oxidized Zirconium on Polyethylene Synthetic Substitute, Cemented, Open Approach (ICD-10-PCS; principal; 2018-09-20 17:00)
DX: M17.11 Unilateral primary osteoarthritis, right knee (principal); C92.10 Chronic myeloid leukemia, BCR/ABL-positive, not having achieved remission; M79.7 Fibromyalgia; E04.1 Nontoxic single thyroid nodule; F41.8 Other specified anxiety disorders; M35.3 Polymyalgia rheumatica; R00.0 Tachycardia, unspecified; Z79.899 Other long term (current) drug therapy; Z88.5 Allergy status to narcotic agent; Z91.040 Latex allergy status; Z83.3 Family history of diabetes mellitus; Z80.9 Family history of malignant neoplasm, unspecified
CPT/HCPCS: 36415; 71046; 71275; 80048; 81003; 81015; 81025; 83036; 83735; 84443; 85025; 85610; 87086; 93005; A9270-GY; C1776; G8978-GP-CJ; G8979-GP-CI; G8987-GO-CI; G8988-GO-CI; G8989-GO-CI; J0690; J0696; J1100; J1170; J1240; J1650; J1885; J2250; J2270; J2405; J2704; J3010; Q9967